=== PATIENT | male | born 1955 | race Caucasian/White ===

== ENCOUNTER 2020-10-03 10:11 | Outpatient (CLI) | payer SELFPAY ==
--- NOTE | 2020-10-03 | ECG_ITS ---
[facility] Test Date: 2020-10-03 Pat Name: Geovani Field Department: Room: Gender: Male Cook Apprentice: : 1955 Requested By: Louis Yanes Order Number: [id number] Chapito MD: Zahra Ayala M.D. Measurements Intervals [place] Rate: 82 P: 62 TN: 187 QRS: -64 QRSD: 108 T: 40 QT: 376 QTc: 440 Interpretive Statements SINUS RHYTHM LEFT ANTERIOR FASCICULAR BLOCK [QRS AXIS <= -45, QR IN I, RS IN II] No previous ECG available for comparison Electronically Signed On 10-03-2020 16:13:28 WHOLESALE ACCOUNT MANAGER by Zahra Ayala M.D. [email or web address]
== END 2020-10-03 10:12 | disposition home or self-care (01) ==
PROVIDERS: Visit Provider Specialist
DX: Z01.810 Encounter for preprocedural cardiovascular examination (principal); C44.319 Basal cell carcinoma of skin of other parts of face
CPT/HCPCS: 93005

== ENCOUNTER 2020-10-09 07:01 | Outpatient (CLI) | payer MEDICARE, SELFPAY ==
--- NOTE | 2020-10-09 10:16 | P.PTHFZ_ITS ---
Frozen Section Notes Specimen(s): Specimens B-E submitted for frozen section diagnosis Gross: Specimens B through E are submitted for frozen section diagnoses (fresh) in cassettes FS B1 through FS E1. Specimen B, anterior superior basal cell carcinoma consists of a thin margin of skin with hair follicles measuring 1 cm in length and 0.2 cm in diameter, submitted in cassette B1 for frozen section diagnosis. Specimen C, anterior inferior basal cell carcinoma consists of a 0.9 cm fragment of thin margin of skin with hair follicles with a diameter of 0.2 cm, submitted in cassette C1 for frozen section diagnosis. Specimen D, posterior inferior basal cell carcinoma consists of 1 cm fragment of thin margin of skin with hair follicles with a diameter of 0.2 cm, submitted in cassette FS D1 for frozen section diagnosis. Specimen E, posterior superior basal cell carcinoma consists of a 1.1 cm fragment of skin with hair follicles with a diameter of 0.2 cm, submitted in cassette FS E1 for frozen section diagnosis. Preliminary Impression: B. Skin, anterior superior basal cell carcinoma margin , frozen section diagnosis: ?Positive for basal cell carcinoma. C. Skin, anterior-inferior basal cell carcinoma margin , frozen section diagnosis: ?Positive for basal cell carcinoma. D. Skin, posterior inferior basal cell carcinoma margin , frozen section diagnosis: ?Negative for malignancy. E. Skin, posterior superior basal cell carcinoma margin , frozen section diagnosis : ?Negative for malignancy. - Specimen Information Pathologist: Guilherme Christie Date: 10/08/20 Specimen reported at what time: 15:16 - Clinician Specimen collection time: 14:56 Clinician reported to: Louis Velez (One of the containers were labeled C instead D so there was an initial error in reporting the posterior-superior margin as positive instead of the anterior superior margin . After cross- checking and confirmation of the specimen containers with the paper work submitted, Dr Velez was informed that both the anterior margins (superior/inferior) were positive for BCC.)
== END 2020-10-09 07:02 | disposition home or self-care (01) ==
PROVIDERS: Visit Provider Specialist
DX: C44.319 Basal cell carcinoma of skin of other parts of face (principal)
CPT/HCPCS: 88304

== ENCOUNTER → 2023-06-09 07:53 | Outpatient (BNVA) | payer MEDICARE, SELFPAY | PROVIDERS: PCP Nurse Practitioner Family; Referring Provider Nurse Practitioner Family; Visit Provider Nurse Practitioner Family | DX: Z85.828 Personal history of other malignant neoplasm of skin (principal); L57.0 Actinic keratosis; D22.5 Melanocytic nevi of trunk; L57.8 Other skin changes due to chronic exposure to nonionizing radiation; L81.4 Other melanin hyperpigmentation | CPT/HCPCS: 17000; 99203 ==

== ENCOUNTER → 2023-12-06 07:56 | Outpatient (BNVA) | payer MEDICARE, SELFPAY | PROVIDERS: PCP Nurse Practitioner Family; Visit Provider Nurse Practitioner Family | DX: L57.8 Other skin changes due to chronic exposure to nonionizing radiation (principal); L81.4 Other melanin hyperpigmentation; L57.0 Actinic keratosis; S60.922A Unspecified superficial injury of left hand, initial encounter; X58.XXXA Exposure to other specified factors, initial encounter; L23.9 Allergic contact dermatitis, unspecified cause; Z85.828 Personal history of other malignant neoplasm of skin | CPT/HCPCS: 17000; 99214 ==

== ENCOUNTER → 2024-06-06 07:51 | Outpatient (BNVA) | payer MEDICARE, SELFPAY | PROVIDERS: PCP Nurse Practitioner Family; Visit Provider Nurse Practitioner Family | DX: L30.9 Dermatitis, unspecified (principal); L57.0 Actinic keratosis; L57.8 Other skin changes due to chronic exposure to nonionizing radiation; L81.4 Other melanin hyperpigmentation; Z85.828 Personal history of other malignant neoplasm of skin | CPT/HCPCS: 17000; 99214 ==

== ENCOUNTER → 2024-09-06 08:25 | Outpatient (BNVA) | payer MEDICARE, SELFPAY | PROVIDERS: PCP Nurse Practitioner Family; Visit Provider Nurse Practitioner Family | DX: L57.8 Other skin changes due to chronic exposure to nonionizing radiation (principal); L81.4 Other melanin hyperpigmentation; L66.11 Classic lichen planopilaris; Z08 Encounter for follow-up examination after completed treatment for malignant neoplasm; Z85.828 Personal history of other malignant neoplasm of skin; L57.0 Actinic keratosis | CPT/HCPCS: 17000; 99213 ==

== ENCOUNTER → 2025-01-01 08:52 | Outpatient (BNVA) | payer MEDICARE, SELFPAY | PROVIDERS: PCP Nurse Practitioner Family; Visit Provider Nurse Practitioner Family | DX: L21.8 Other seborrheic dermatitis (principal); L66.11 Classic lichen planopilaris; L57.8 Other skin changes due to chronic exposure to nonionizing radiation; L81.4 Other melanin hyperpigmentation; Z08 Encounter for follow-up examination after completed treatment for malignant neoplasm | CPT/HCPCS: 17000; 99214 ==

== ENCOUNTER → 2025-06-17 10:13 | Outpatient (BNVA) | payer MEDICARE, SELFPAY | PROVIDERS: PCP Nurse Practitioner Family; Visit Provider Nurse Practitioner Family | DX: L57.8 Other skin changes due to chronic exposure to nonionizing radiation (principal) | CPT/HCPCS: 17000; 99213 ==